=== PATIENT | male | born 1945 | race Caucasian/White ===

== ENCOUNTER 2020-01-27 07:35 | Day surgery (SDC) | payer OTHER ==
[~2020-01-27] VITALS: Ht 162.6 cm; Wt 78.5 kg
[~2020-01-27 07:35] MED LIST: ASA81BEC PO; BYSTOLIC2.5 MG PO; CRESTOR20 MG PO; FAMOTIDINE 10 M10 MG PO; FOLIC ACID1 MG PO; HYTRIN 2MG CAPSU2 MG PO; MULTI VITAMIN1 EACH PO; NORVASC 2.5 MG2.5 MG PO
[2020-01-27 10:00] VITALS: BP 149/62
[2020-01-27] MEDS ORDERED: NORCO 5-325 TA1 EAC1 PO (10:04)
[2020-01-27 12:23] VITALS: BP 149/62
--- NOTE | 2020-01-27 15:46 | EKG ---
[facility] [place] [address] ELECTROCARDIOGRAM REPORT Name: AMBROSIO PIPER Room #: 150-5 [facility] M.R.#: [id number] Admission: 01/27/20 Attend Phys: Salvador Benites MD Discharge: Date of : 43 Report #: [id number] THIS REPORT FOR: cc: Salvador Gutierrez MD, Thomas P. MD Couchonnal, Luis F. MD ~ THIS REPORT FOR: //name// [facility] Test Date: 2020-01-27 Test Time: 08:43:19 Pat Name: AMBROSIO PIPER Department: Room: 150 5 Gender: M [employer] Developer: Bayron FRANKLIN : 1945 Requested By: Salvador Benites Order Number: [id number] MD: Sebastián Moe Measurements Intervals [place] Rate: 47 P: 65 AK: 147 QRS: -17 QRSD: 110 T: 36 QT: 486 QTc: 430 Interpretive Statements Sinus bradycardia Borderline left axis deviation No previous ECG available for comparison Electronically Signed On 01-27-2020 15:45:44 CDT by Sebastián Moe [email or web address] <ELECTRONICALLY SIGNED> By: Sebastián Moe MD 01/27/20 1545 0843 Sebastián Moe MD /KYA
--- NOTE | 2020-01-28 18:06 | PATH ---
[facility] [address] [place] [address] PATHOLOGY RPT PROCEDURE Name: AMBROSIO PIPER Room #: DEP [facility] M.R.#: [id number] Admission: 01/27/20 Date of : 43 Discharge: 01/27/20 Report #: [id number] Path Case #: [id number] [facility] Accession Number: [id number] . 01 Material submitted: . inguinal area - CORD LIKE LIPOMA . 01 Clinical history: . Right inguinal hernia . 02 Diagnosis: Mature adipose tissue, cord lipoma, resection: - Compatible with a lipoma associated with focal fat necrosis and regenerative changes. - One fragment of fibrovascular connective tissue with congestion and mild chronic inflammation compatible with a hernia sac. (IUV:colleen 01/28/2020) QMS 01/28/2020 1327 Local . 02 Electronically signed: . Carla Vega MD, Pathologist NPI- [id number] . 01 Gross description: . The specimen is received in formalin, labeled "Ambrosio Piper, cord like lipoma" and consists of a partially encapsulated segment of yellow lobulated tissue with attached pink membranous tissue measuring 5.3 x 1.3 x 0.8 cm. Sectioning reveals no gross lesions and senior human resources representative sections are submitted in A1. (SDY; 01/27/2020) SYU/SYU 01/27/2020 1725 Local . 02 Pathologist provided ICD-10: K40.90 . 02 CPT . 963282 Specimen Comment: A courtesy copy of this report has been sent to [phone], [phone] Specimen Comment: [phone] Specimen Comment: Report sent to / DR HANNAH Performed at: [address] [id number] MD Marcos Castillo MD Phone: [phone] Performed at: 02 [facility] [address] [place] [address] PATHOLOGY RPT PROCEDURE Name: AMBROSIO PIPER Room #: DEP [facility]..#: [id number] Admission: 01/27/20 Date of : 43 Discharge: 01/27/20 Report #: [id number] Path Case #: [id number] [address] [place] [id number] MD Carla Vega MD Phone: [phone]
--- NOTE | 2020-01-29 14:46 | O ---
[facility] [place] [address] OPERATIVE REPORT Name: AMBROSIO PIPER Room #: DEP [facility] M.R.#: [id number] Admission: 01/27/20 Attend Phys: Salvador Benites MD Discharge: 01/27/20 Date of : 43 Report #: [id number] THIS REPORT FOR: cc: Salvador Gutierrez MD, Thomas P. MD Franey,Salvador Jameson MD ~ CC: Salvador Benites DATE OF SERVICE: 01/27/[address] Salvador Gutierrez. PREOPERATIVE DIAGNOSIS: Right inguinal hernia. POSTOPERATIVE DIAGNOSIS: Right inguinal hernia with a right cord lipoma. PROCEDURES: Right inguinal hernia repair with Prolene hernia system mesh and excision of a right cord lipoma. SURGEON: Salvador Benites MD ANESTHESIA: Local IV sedation. DESCRIPTION OF PROCEDURE: The patient was brought to the operating room and placed on the operative table in the supine position. Sequential compression devices were in place for DVT prophylaxis. There was no indication for preoperative antibiotics. The patient underwent IV sedation. The right inguinal area was prepped and draped in a sterile fashion. Skin and subcutaneous tissue were then infiltrated with 0.5% Marcaine and 1% Xylocaine in a 1:1 mixture. Right inguinal skin incision was then performed using #10 scalpel blade. Hemostasis obtained using the electrocautery as well as clamps and 2-0 chromic ties. Dissection was carried down through subcutaneous tissue in the external oblique fascia, which was then incised with a knife and opened with the Metzenbaum scissors. The ilioinguinal nerve was identified, dissected free, injected with the local mixture and preserved. Cord was then dissected free, elevated up and a cremasteric muscle fibers were then split in the direction of their fibers using clamp and electrocautery. A cord lipoma was identified, dissected free, clamped, excised and tied with 2-0 chromic tie and sent as specimen to pathology. A large indirect inguinal hernia sac was identified, dissected free and reduced back through the internal ring. An extended Prolene hernia system mesh was then inserted through the internal ring and the underlay patch was then deployed in the preperitoneal space. Connector was left in the internal ring. The floor was inspected and found to be intact and in good condition. The overlay patch was then deployed in the inguinal [address] [address] OPERATIVE REPORT Name: VERONIQUEAMBROSIO Room #: DEP [facility] M.R.#: [id number] Admission: 01/27/20 Attend Phys: Salvador Benites MD Discharge: 01/27/20 Date of : 43 Report #: [id number] and secured at the pubic tubercle superiorly and at the connector using simple interrupted 2-0 Vicryl sutures. The mesh was then split and wrapped around the cord, secured to the inguinal ligament with simple interrupted 2-0 Vicryl suture. The cord and ilioinguinal nerve then returned to the canal intact. The external oblique fascia was then closed using running 2-0 Vicryl suture. Adrian's fascia was then reapproximated using 3 simple interrupted 2-0 chromic sutures and the skin then closed with a running 4-0 subcuticular Vicryl stitch. The wound was then dressed with Mastisol, 1/2-inch Steri-Strips cut in half, Telfa, 4 x 4 gauze, sponge and tape. The patient was then awakened from the IV sedation and taken to the recovery room, awake, alert and in good condition. Estimated blood loss was approximately 5 mL and the patient tolerated procedure well. All sponge, lap and instrument counts correct x2. <ELECTRONICALLY SIGNED> By: Salvador Benites MD 01/29/20 1446 1140 1157 Salvador Benites MD /nt
== END 2020-01-27 13:20 | disposition home or self-care (01) ==
LOC: OR 07:35 → TBA 07:35 → OR 13:20
PROVIDERS: ATTEND Surgery
DX: K40.90 Unilateral inguinal hernia, without obstruction or gangrene, not specified as recurrent (principal); D17.6 Benign lipomatous neoplasm of spermatic cord; I10 Essential (primary) hypertension; K21.9 Gastro-esophageal reflux disease without esophagitis; Z98.890 Other specified postprocedural states; Z79.899 Other long term (current) drug therapy; Z96.651 Presence of right artificial knee joint; Z11.59 Encounter for screening for other viral diseases
CPT/HCPCS: 50010; 50101; 50386; 50417; 54111; 56524; 56526; 56528; 62110; 62850; 70005